=== PATIENT | female | born 1990 | race Caucasian/White ===

== ENCOUNTER 2016-09-01 21:50 | Emergency (ER) | payer MEDICAID | END 2016-09-02 01:57 | disposition home or self-care (01) | LOC: ER 21:50 | DX: N30.90 Cystitis, unspecified without hematuria (principal); F17.210 Nicotine dependence, cigarettes, uncomplicated | CPT/HCPCS: 36415; 80053; 81001; 83690; 84703; 85025; 87088; 87491; 87591 ==